=== PATIENT | female | born 1990 | race Caucasian/White ===

== ENCOUNTER → 2016-04-20 | Day surgery (SDC) | payer BC ==
[2016-04-06 13:23] VITALS: Ht 165.1 cm; Wt 100.0 kg
[2016-04-07 15:17] LABS: BASO % 0.2 %; BASO ABS # 0.02 K/uL (0-0.2); COMPLETE YES; EOS % 3.6 %; HEMATOCRIT 39.2 % (37-47); IG% 0.2 %; LYMPH ABS # 2.86 K/uL (1.2-3.4); MEAN CELL VOLUME 86.2 fL (80-100); MEAN CORPUSCULAR HEMOGLOBIN 28.6 pg (25-34); MEAN CORPUSCULAR HGB CONC 33.2 g/dl (32-36); MEAN PLATELET VOLUME 9.5 fL (7.4-10.4); PLATELET COUNT 346 K/uL (130-400); RED BLOOD COUNT 4.55 M/uL (4.2-5.4); WHITE BLOOD COUNT 8.41 K/uL (4.8-10.8)
--- NOTE | 2016-04-07 15:40 | HISTORY & PHYSICAL EXAMINATION ---
DATE OF ADMISSION: 04/20/2016 ADMITTING DIAGNOSES: 1. Abnormal uterine bleeding. 2. 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 The patient has been bothered by irregular vaginal bleeding for the last several months. She has been bleeding 2-3 weeks out of the month. She was seen in the office and had a pelvic ultrasound in office, SIS which revealed what appears to be uterine synechiae. The patient has no history of instrumentation of the uterus. Treatment options were discussed and the patient is admitted for the above listed procedure. PAST MEDICAL HISTORY: OBSTETRICS: x1. GYNECOLOGIC: As above. 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 SURGICAL: None. ALLERGIES: No known drug allergies. SOCIAL HISTORY: No smoking. FAMILY HISTORY: Noncontributory. REVIEW OF SYSTEMS: As per HPI. ADMISSION PHYSICAL EXAMINATION: GENERAL: Shows a pleasant female in no acute distress. VITAL SIGNS: Blood pressure 122/74, height of 5 feet 5 inches and weight of 223 pounds. HEENT EXAMINATION: Unremarkable. NECK: Supple. LUNGS: Clear. HEART: With a regular rhythm and rate. ABDOMEN: Obese, nontender with no palpable masses. PELVIC: Shows normal external genitalia. Vaginal vault is pink and rugated. There is blood in the posterior fornix. The cervix is multiparous and closed. Bimanual examination, uterus and adnexa cannot be palpated secondary to patient habitus. RECTAL: Confirmatory. EXTREMITIES: Exam shows no deep calf tenderness. NEUROLOGIC: Grossly intact. 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 PLAN: The risks, benefits and alternatives to the surgery have been discussed. While the benefits will be removal of the uterine synechiae, the risks are bleeding, infection, inadvertent perforation of the uterus and failure to improve bleeding. The patient understands this. Permit has been signed and she wishes to proceed.
[~2016-04-20] VITALS: Ht 165.1 cm; Wt 100.0 kg
[~2016-04-20] MED LIST: ATROPINE SULFATE 0.1 MG/ML 5ML SYR IV PRN; DEXAMETHASONE SOD INJ 4 MG/ML VIAL ONE; EpHEDrine SULFATE INJ 50 MG/ML AMP IV PRN; FENTANYL CITRATE INJ 50 MCG/1 ML 2 ML VIAL IV PRN; FENTANYL CITRATE INJ 50 MCG/1 ML 2 ML VIAL ONE; IBUPROFEN 600 MG TAB PO PRN; KETOROLAC TROMETHAMINE 30 MG/ML VIAL IV. PRN; KETOROLAC TROMETHAMINE 30 MG/ML VIAL ONE; LACTATED RINGER'S 1000ML 1,000 ML IV SCH; LIDOCAINE HCL 2% 2 ML VIAL (20MG/ML) ONE; MIDAZOLAM HCL 1 MG/ML 2ML VIAL ONE; MTR600X PO; ONDANSETRON INJ 2 MG/ML 2 ML VIAL IV PRN; ONDANSETRON INJ 2 MG/ML 2 ML VIAL ONE; PROPOFOL IV EMULSION 10 MG/ML 20 ML VIAL IV ONE; SODIUM CHLORIDE 0.9% 1000ML 1,000 ML IV SCH; WARF5TAB90 PO; WARF7.5T PO
--- NOTE | 2016-04-20 07:02 | History & Physical Bridge - SC ---
H&P Re-Evaluation Bridge Note: I have examined the patient, reviewed the History & Physical and in the interval since the performance of the History & Physical I have noted the following changes of clinical significance: No changes noted
--- NOTE | 2016-04-20 07:46 | [facility] Post Operative Brief Note ---
Immediate Operative Summary Operative Date Apr 20, 2016. Pre-Operative Diagnosis !) Abnormal Uterine Bleeding Post-Operative Diagnosis same Procedure(s) Performed 1) Diagnostic Hysteroscopy 2) D&C with Myosure Surgeon Dr. Chapin Saab [facility] Director Surgeon(s) None Estimated Blood Loss minimal Findings Denuded endometrium with ? synechia at right lateral horn, broken with hysteroscope. Myosure of lining for residual tissue. Fluid deficit for procedure 350cc Fluids (cc crystalloids) 600 Specimens A. Endometrial Curettings Drains None Anesthesia General Complication(s) None Disposition Recovery Room / PACU
--- NOTE | 2016-04-20 07:51 | Medical Student: [facility] ---
Operative Report Operative Date Apr 20, 2016. Pre-Operative Diagnosis abnormal uterine bleeding Post-Operative Diagnosis abnormal uterine bleeding Procedure(s) Performed diagnostic hysteroscopy and D&C using myosure Surgeon Dr. Cardoso Commercial Loan Assistant Surgeon(s) none Estimated Blood Loss minimal Findings endometrial tissue inconsistent with polyp. possibly fibrous tissue consistent with synechiae. Fluids (cc crystalloids) 800mls Specimens endometrial cuttings Drains bladder drained prior to procedure Anesthesia general Complication(s) None Disposition Recovery Room / PACU Implants none Indications 26 y/o [id number] obese white female c/o abnormal uterine bleeding and suspect uterine synechiae seen on US. History significant for heterozygosity of prothrombin [id number] mutation. She has been unable to become despite 2.5 years of unprotected sexual intercourse.No previous history of D&C or uterine surgery.
--- NOTE | 2016-04-20 07:51 | Discharge Instructions-SurgCtr ---
Discharge Instructions Visit Reason for Visit: Abnormal Uterine Bleeding Discharge Discharge Diagnosis / Problem: same Discharge Goals Goal(s): Therapeutic intervention Activity Recommendations Activity Limitations: as noted below Anesthesia . Post Anesthesia Instructions: If you have had General Anesthesia or IV Sedation: * Do not drive today. * Resume driving when surgeon permits. * Do not make important decisions or sign legal documents today. * Call surgeon for: 1. Temperature elevations greater than 101 degrees F. 2. Uncontrollable pain. 3. Excessive bleeding. 4. Persistent nausea and vomiting. 5. Medication intolerance (nausea, vomiting or rash). * For nausea and vomiting use only clear liquids such as: tea, soda, bouillon until nausea subsides, then gradually increase diet as tolerated. * If you have any concerns or questions, call your surgeon's office. If physician is unavailable and it is an emergency, call 911 or go to the nearest emergency room. . Instructions / Follow-Up Instructions / Follow-Up ACTIVITY RECOMMENDATIONS: * Avoid tampons, douching, hot tubs, pools, and intercourse until bleeding has stopped. * May shower as usual. * No strenuous activity for 24-48 hours. After 24-48 hours, you may do anything you feel like doing (driving and sports are okay). SPECIAL CARE INSTRUCTIONS: Special Diet: * Mild nausea may occur in the immediate post-operative period. * Take clear liquids such as tea, cola or bouillon until all nausea has subsided; you may then resume your normal diet. Special Care: * Light bleeding and vaginal spotting can last from a few days to 3-4 weeks. Call your doctor if bleeding becomes heavier than the heaviest part of your period. * Check your temperature twice a day for one week. If it goes above 100.4 degrees Fahrenheit (38.0 Celsius), notify your doctor. * Call your doctor's office for an appointment for 6 weeks after your surgery. FOLLOW-UP VISIT: Call your doctor's office for an appointment for 6 weeks after your surgery. Diet Recommendations Home Diet: resume previous diet Procedures Procedures Performed: 1) Diagnostic Hysteroscopy 2) D&C with Myosure Pending Studies Studies pending at discharge: yes List of pending studies: Pathology of D&C Medical Emergencies . Who to Call and When: Medical Emergencies: If at any time you feel your situation is an emergency, please call 911 immediately. . Non-Emergent Contact Non-Emergency issues call your: Player Development Executive Call Non-Emergent contact if: you have a fever, temperature is above 100.5, your pain is not controlled . . "Provider Documentation" section prepared by Saad Saab.
[2016-04-20 08:22] VITALS: TEMP 36.2
--- NOTE | 2016-04-20 08:31 | OPERATIVE REPORT ---
DATE OF OPERATION: 04/20/2016 PREOPERATIVE DIAGNOSES: 1. Dysfunctional uterine bleeding. 2. Probable intrauterine synechiae. POSTOPERATIVE DIAGNOSIS: Same. PROCEDURE PERFORMED: 1. Diagnostic hysteroscopy. 2. D\T\C, using MyoSure. SURGEON: Dr. Saab. ANESTHESIA: General. FINDINGS: Hysteroscopic examination of the endometrial lining showed denuded endometrium with questionable synechial band of tissue broken with the hysteroscope. Fragments of the endometrial lining removed with the MyoSure. Fluid deficit for the procedure 345 mL. PROCEDURE IN DETAIL: The patient was taken to the operating room and after general anesthesia was placed in dorsolithotomy position and draped and prepped in the usual fashion bladder was drained of any residual urine. Single tooth tenaculum was used to grasp the anterior lip of the cervix. The cervical os was dilated with Capps dilators to #23. The MyoSure hysteroscope was inserted into the endometrial cavity with the description as above. The MyoSure resectoscope was then inserted through the MyoSure scope and the fragments of tissue on the endometrial lining were removed and sent for pathological evaluation. Post-procedure showed a denuded endometrium. Fluid deficit for the procedure 350 mL. The patient taken out of dorsal lithotomy to recovery room in satisfactory condition. I attest to the content of the Intraoperative Record and any orders documented therein. Any exceptio ns are noted below.
--- NOTE | 2016-04-20 08:43 | Anesthesia Progress Nt - [facility] ---
Anesthesia Post Op Note Date & Time Apr 20, 2016 at 08:43 Vital Signs Pain Intensity: 0 Vital Signs Past 12 Hours Date Time Temp Pulse Resp B/P Pulse Ox O2 Delivery O2 Flow Rate FiO2 04/20/16 08:22 36.2 54 14 135/84 96 Room Air 04/20/16 08:15 55 14 93 04/20/16 08:15 36.4 57 14 04/20/16 08:13 114/79 04/20/16 08:10 65 16 94 04/20/16 08:10 62 16 04/20/16 08:08 119/75 04/20/16 08:05 53 14 04/20/16 08:05 48 14 99 04/20/16 08:03 123/72 04/20/16 08:00 61 11 99 04/20/16 08:00 62 11 04/20/16 07:58 124/80 04/20/16 07:55 69 15 98 04/20/16 07:55 66 15 04/20/16 07:53 121/74 04/20/16 07:51 36.6 58 16 131/78 98 Mask 6 04/20/16 07:50 59 99 04/20/16 07:50 59 04/20/16 06:21 36.9 81 18 127/85 96 Room Air Notes Mental Status: alert / awake / arousable, participated in evaluation Pt Amnestic to Procedure: Yes Nausea / Vomiting: adequately controlled Pain: adequately controlled Airway Patency, RR, SpO2: stable & adequate BP & HR: stable & adequate Hydration State: stable & adequate Anesthetic Complications: no major complications apparent
[2016-04-20 08:55] VITALS: BP 133/85; PULSE 59; O2SAT 97
== END | disposition home or self-care (01) ==
LOC: X.SURG 06:06
PROVIDERS: ATTEND Obstetrics & Gynecology
DX: N84.0 Polyp of corpus uteri (principal); N93.9 Abnormal uterine and vaginal bleeding, unspecified

== ENCOUNTER 2016-07-06 10:58 | Emergency (ER) | payer BC, OTHER ==
[~2016-07-06] VITALS: Ht 165.1 cm; Wt 102.9 kg
[~2016-07-06 10:58] MED LIST changes: -ATROPINE SULFATE 0.1 MG/ML 5ML SYR IV PRN; -DEXAMETHASONE SOD INJ 4 MG/ML VIAL ONE; -EpHEDrine SULFATE INJ 50 MG/ML AMP IV PRN; -FENTANYL CITRATE INJ 50 MCG/1 ML 2 ML VIAL IV PRN; -FENTANYL CITRATE INJ 50 MCG/1 ML 2 ML VIAL ONE; -IBUPROFEN 600 MG TAB PO PRN; -KETOROLAC TROMETHAMINE 30 MG/ML VIAL IV. PRN; -KETOROLAC TROMETHAMINE 30 MG/ML VIAL ONE; -LACTATED RINGER'S 1000ML 1,000 ML IV SCH; -LIDOCAINE HCL 2% 2 ML VIAL (20MG/ML) ONE; -MIDAZOLAM HCL 1 MG/ML 2ML VIAL ONE; -ONDANSETRON INJ 2 MG/ML 2 ML VIAL IV PRN; -ONDANSETRON INJ 2 MG/ML 2 ML VIAL ONE; -PROPOFOL IV EMULSION 10 MG/ML 20 ML VIAL IV ONE; -SODIUM CHLORIDE 0.9% 1000ML 1,000 ML IV SCH; -WARF5TAB90 PO; -WARF7.5T PO
[2016-07-06 11:10] VITALS: TEMP 36.9; Ht 165.1 cm; Wt 102.9 kg
[2016-07-06] MEDS ORDERED: WARF5TAB90 PO (11:48)
[2016-07-06] MEDS ORDERED: WARF7.5T PO (11:48)
[2016-07-06 11:58] VITALS: O2SAT 100
--- NOTE | 2016-07-06 12:07 | EMERGENCY ROOM VISIT NOTE ---
History Report prepared by Meghan: Jaclyn Sams Under the Supervision of: Dr. Saad Fay M.D. First contact with patient: 11:49 Chief Complaint: SHORTNESS OF BREATH Stated Complaint: CHEST PAIN, SOB, (BLOOD CLOTS IN LUNGS 05/14/16) History of Present Illness The patient is a 26 year old female who presents to the Emergency Room with complaints of persistent shortness of breath that began five days ago. The patient stats that in the beginning of April she had a D&C done. She states that at that time she asked her physician if she should be placed on a blood thinner after her surgery because she has a history of Factor 2 and Factor 8. The patient states that her physician said she did not need to be on a blood thinner because the disorder was so minor. She states that at the beginning of May she began becoming extremely short of breath and having heart palpitations. The patient states that she was evaluated at [facility] and was found to have pulmonary emboli. She states that the original plan was to send the patient home on rel, but after consulting the patient' s PCP she states that she was evaluated in [facility] from May 14 to May 20. The patient states that she was started on Lovenox and Coumadin. She reports medication compliance. The patient states that her symptoms had subsided, but states that over the last five days she has noticed increased shortness of breath. She states that she has noticed shortness of breath with walking up the stairs and doing her hair. The patient does note that her symptoms are not nearly as bad as when she had her blood clots. She additionally associates a sharp pain under her left breast that is increased with deep breathing. The patient additionally notes a persistent cough. The patient denies any control use and states that she is a nonsmoker. Source of History: patient Onset: five days ago Position: other (global) Quality: other (shortness of breath) Timing: other (persistent) Associated Symptoms: + cough Note: Associated Symptoms: pain under left breast bone. Review of Systems All systems have been listed, reviewed, and are negative other than those previously mentioned. Please see Additional Medical History Sheet. Past Medical & Surgical Medical Problems: (1) Abnormal uterine bleeding (2) Blood clotting disorder (3) Colitis (4) Heterozygous for prothrombin [id number] mutation (5) Intrauterine synechiae (6) Pulmonary embolism Surgical Problems: (1) Diarrhea (2) S/P D&C (status post dilation and curettage) Family History Diabetes mellitus FHx: Crohn's disease Hypertension Social History Smoking Status: Never Smoker Alcohol Use: none Marital Status: Housing Status: lives with significant other Occupation Status: employed Current/Historical Medications Scheduled Warfarin Sodium (Coumadin), 1 TAB PO mon & fri Warfarin Sodium (Coumadin), 1 TAB PO everyday except m&f Scheduled PRN Ibuprofen (Ibuprofen), 600 MG PO Q6H PRN for Pain Allergies Coded Allergies: Sulfamethoxazole w/Trimethoprim (Verified Allergy, Intermediate, rash, ) Physical Exam Vital Signs Date Time Temp Pulse Resp B/P Pulse Ox O2 Delivery O2 Flow Rate FiO2 07/06/16 14:53 82 18 120/70 98 Room Air 07/06/16 14:00 109/85 07/06/16 13:58 90 16 98 07/06/16 12:31 107/68 07/06/16 12:28 76 18 95 07/06/16 12:26 100 Room Air 07/06/16 12:14 88 07/06/16 12:00 131/70 07/06/16 11:58 94 17 100 07/06/16 11:58 100 Room Air 07/06/16 11:53 130/82 07/06/16 11:10 36.9 93 20 138/84 99 Room Air Physical Exam GENERAL: Patient awake, alert, oriented x 3. Patient follows commands. Patient does not appear toxic. Patient is adequately hydrated and well- nourished. SKIN: No erythema, pallor, cyanosis or rash HEENT: Normal head, pupils equal, reactive to light and accommodation. Ears normal. Oral cavity and posterior pharynx appear normal. Neck: Without adenopathy, no neck vein distention. LUNGS: Clear to auscultation. No wheezes, no rales, no rhonchi. HEART: No murmurs. No gallops. No rubs ABDOMEN: Obese. No masses, no rebound, no hepatomegaly or splenomegaly. EXTREMITIES: No signs of trauma. No pedal or pretibial edema. No calf or thigh tenderness. NEUROLOGIC: Cranial nerves II-XII within normal limits. No gross motor sensory function deficits. Medical Decision & Procedures ER Provider Diagnostic Interpretation: Radiology results as stated below per my review and radiologist interpretation: CHEST 2 VIEWS ROUTINE CLINICAL HISTORY: Shortness of breath. Chest pain. COMPARISON STUDY: Chest radiograph September 11, 2014. FINDINGS: Lung volumes are at the lower limits of normal. There is no consolidation to suggest pneumonia. Pulmonary vascularity is normal. Cardiac size is at the upper limits of normal. IMPRESSION: No acute cardiopulmonary findings. Electronically signed by: Andrea Gomes M.D. 07/06/2016 12:54 PM Dictated Date/Time: 07/06/2016 12:53 PM CHEST CTA for PULMONARY ARTERIES CT DOSE: 573.82 mGy.cm HISTORY: Short of breath. Left-sided chest pain. TECHNIQUE: Multiaxial CT images of the chest were performed following the intravenous administration of contrast to evaluate the pulmonary arteries. Maximal intensity projection images were also obtained. COMPARISON STUDY: Chest CTA 05/18/2011. FINDINGS: Suboptimal evaluation of the left lung segmental and subsegmental pulmonary arteries due to motion artifact. Otherwise, the remaining pulmonary arteries show no filling defects to suggest pulmonary embolus. No pleural or pericardial effusions. Normal caliber thoracic aorta. A 7 mm hypodense lesion within the left hepatic lobe. This is too small to characterize. The visualized spleen and adrenal glands are unremarkable. No mediastinal or hilar lymphadenopathy. No fractures within the visualized osseous structures. No pneumothorax. A 6 mm nodular density at the left lung base on image 23 likely represents mild dependent change given the location and patient's age. Stable benign 4 mm subpleural nodule within the right lung apex on image 82. No focal lung consolidations to suggest pneumonia. IMPRESSION: No evidence for pulmonary embolus with limitations as described above. Electronically signed by: Shahab Paris M.D. 07/06/2016 1:54 PM Dictated Date/Time: 07/06/2016 1:46 PM Laboratory Results 07/06/16 11:52 07/06/16 11:52 Test 07/06/16 11:52 07/06/16 12:11 07/06/16 12:24 Red Blood Count 4.61 M/uL (4.2-5.4) Mean Corpuscular Volume 85.5 fL (80-100) Mean Corpuscular Hemoglobin 28.0 pg (25-34) Mean Corpuscular Hemoglobin Concent 32.7 g/dl (32-36) RDW Standard Deviation 41.1 fL (36.4-46.3) RDW Coefficient of Variation 13.2 % (11.5-14.5) Mean Platelet Volume 9.0 fL (7.4-10.4) Prothrombin Time 24.5 SECONDS (9.0-12.0) Prothromb Time International Ratio 2.2 (0.9-1.1) Activated Partial Thromboplast Time 33.9 SECONDS (21.0-31.0) Partial Thromboplastin Ratio 1.3 Anion Gap 7.0 mmol/L (3-11) Est Creatinine Clear Calc Drug Dose 166.3 ml/min Estimated GFR () 145.0 Estimated GFR (Non- 125.1 BUN/Creatinine Ratio 19.9 (10-20) Calcium Level 8.8 mg/dl (8.5-10.1) Troponin I < 0.015 ng/ml (0-0.045) Bedside D-Dimer > 450 ng/mlFEU (0-450) Urine Color YELLOW Urine Appearance CLEAR (CLEAR) Urine pH 6.0 (4.5-7.5) Urine Specific [place] 1.009 (1.000-1.030) Urine Protein NEG (NEG) Urine Glucose (UA) NEG (NEG) Urine Ketones NEG (NEG) Urine Occult Blood NEG (NEG) Urine Nitrite NEG (NEG) Urine Bilirubin NEG (NEG) Urine Urobilinogen NEG (NEG) Urine Leukocyte Esterase NEG (NEG) Urine Test NEG (NEG) Laboratory results as stated above per my review. ECG Indication: SOB/dyspnea Rate (beats per minute): 87 Rhythm: normal sinus Findings: no acute ischemic change, no ectopy ED Course 1152: Past medical records reviewed. The patient was evaluated in room C1B. A complete history and physical examination was performed. 1300: I reevaluated the patient and I updated her that she will have a CT scan. She is in agreement. 1436: I reevaluated the patient and she is resting comfortably. I discussed all the exam findings with her and I discussed the treatment plan. She verbalized complete understanding and agreement. She is ready to go home. 1441: Ordered Albuterol 2 puffs INH. Medical Decision Nurses notes reviewed. Medical history sheet reviewed. Differential diagnosis includes but is not limited to: acute bronchitis, pneumonia, PE, pneumothorax, acute cardiac condition. Multiple labs, EKG and imaging were obtained. Please see above. The patient has no evidence of an acute PE. INR is 2.2. The patient may have some bronchitis causing her symptoms. She was given a Ventolin inhaler which she will continue to use at home. Impression Primary Impression: Acute bronchitis Scribe Attestation The scribe's documentation has been prepared under my direction and personally reviewed by me in its entirety. I confirm that the note above accurately reflects all work, treatment, procedures, and medical decision making performed by me. Departure Information Dispostion Home / Self-Care Referrals Ld Fregoso M.D. (PCP) Forms HOME CARE DOCUMENTATION FORM, IMPORTANT VISIT INFORMATION Patient Instructions [facility] Additional Instructions Continue all of your current medications as prescribed. 2 puffs of Ventolin inhaler every 4-6 hours as needed for cough or shortness of breath. Follow-up with your family physician within the next 2 weeks. Return here sooner if you become more short of breath. Work Instructions Return To Work: 1 day Specific Date: 07/07/16
[2016-07-06 12:20] LABS: HEMATOCRIT 39.4 % (37-47); MEAN CELL VOLUME 85.5 fL (80-100); MEAN CORPUSCULAR HGB CONC 32.7 g/dl (32-36); PLATELET COUNT 305 K/uL (130-400); RED BLOOD COUNT 4.61 M/uL (4.2-5.4); WHITE BLOOD COUNT 8.24 K/uL (4.8-10.8)
[2016-07-06 12:29] LABS: BLOOD UREA NITROGEN 12 mg/dl (7-18); BUN/CREATININE RATIO 19.9 (10-20); CALCIUM 8.8 mg/dl (8.5-10.1); CARBON DIOXIDE 25 mmol/L (21-32); CHLORIDE 108 mmol/L (98-107); CREATININE 0.61 mg/dl (0.60-1.20); GLUCOSE 91 mg/dl (70-99); POTASSIUM 4.1 mmol/L (3.5-5.1); SODIUM 140 mmol/L (136-145)
[2016-07-06 12:46] LABS: URINE APPEARANCE CLEAR (CLEAR); URINE BILIRUBIN NEG (NEG); URINE COLOR YELLOW; URINE NITRITE NEG (NEG); URINE SPECIFIC GRAVITY 1.009 (1.000-1.030); UROBILINOGEN NEG (NEG); ZZUR CULT IF INDIC CLEAN CATCH NO
[2016-07-06 12:54] LABS: MANUAL MICROSCOPIC REQUIRED? NO; REVIEW REQ? NO
--- NOTE | 2016-07-06 12:56 | DIAGNOSTIC IMAGING REPORT ---
CHEST 2 VIEWS ROUTINE CLINICAL HISTORY: Shortness of breath. Chest pain. COMPARISON STUDY: Chest radiograph September 11, 2014. FINDINGS: Lung volumes are at the lower limits of normal. There is no consolidation to suggest pneumonia. Pulmonary vascularity is normal. Cardiac size is at the upper limits of normal. IMPRESSION: No acute cardiopulmonary findings. Electronically signed by: Andrea Gomes M.D. 07/06/2016 12:54 PM Dictated Date/Time: 07/06/2016 12:53 PM
[2016-07-06] MEDS ORDERED: OPTIRAY 320 IV PRN (13:30)
[2016-07-06 13:38] LABS: INR 2.2 (0.9-1.1); PARTIAL THROMBOPLASTIN RATIO 1.3; PROTHROMBIN TIME (PATIENT) 24.5 SECONDS (9.0-12.0)
--- NOTE | 2016-07-06 13:56 | DIAGNOSTIC IMAGING REPORT ---
CHEST CTA for PULMONARY ARTERIES CT DOSE: 573.82 mGy.cm HISTORY: Short of breath. Left-sided chest pain. TECHNIQUE: Multiaxial CT images of the chest were performed following the intravenous administration of contrast to evaluate the pulmonary arteries. Maximal intensity projection images were also obtained. COMPARISON STUDY: Chest CTA 05/18/2011. FINDINGS: Suboptimal evaluation of the left lung segmental and subsegmental pulmonary arteries due to motion artifact. Otherwise, the remaining pulmonary arteries show no filling defects to suggest pulmonary embolus. No pleural or pericardial effusions. Normal caliber thoracic aorta. A 7 mm hypodense lesion within the left hepatic lobe. This is too small to characterize. The visualized spleen and adrenal glands are unremarkable. No mediastinal or hilar lymphadenopathy. No fractures within the visualized osseous structures. No pneumothorax. A 6 mm nodular density at the left lung base on image 23 likely represents mild dependent change given the location and patient's age. Stable benign 4 mm subpleural nodule within the right lung apex on image 82. No focal lung consolidations to suggest pneumonia. IMPRESSION: No evidence for pulmonary embolus with limitations as described above. Electronically signed by: Shahab Paris M.D. 07/06/2016 1:54 PM Dictated Date/Time: 07/06/2016 1:46 PM
[2016-07-06] MEDS ORDERED: ALBUTEROL HFA 8 GM INHALER INH STA (14:41)
[2016-07-06 15:09] VITALS: BP 120/70; PULSE 68; O2SAT 99
== END 2016-07-06 15:10 | disposition home or self-care (01) ==
LOC: C.EDB 10:59 → C.EDC 15:10
DX: J20.9 Acute bronchitis, unspecified (principal); Z86.711 Personal history of pulmonary embolism; Z98.890 Other specified postprocedural states; D68.52 Prothrombin gene mutation; D68.2 Hereditary deficiency of other clotting factors; D66 Hereditary factor VIII deficiency; Z83.3 Family history of diabetes mellitus; Z82.49 Family history of ischemic heart disease and other diseases of the circulatory system; Z83.79 Family history of other diseases of the digestive system; Z79.01 Long term (current) use of anticoagulants

== ENCOUNTER → 2017-09-29 | Outpatient (CLI) | payer BC ==
[~2017-09-29] MED LIST changes: +WARF5TAB90 PO; +WARF7.5T PO
[2017-09-29 13:01] LABS: INR 1.4 (0.9-1.1)
== END | disposition home or self-care (01) ==
LOC: C.LABMFLN 07:13
PROVIDERS: ATTEND Family Medicine
DX: I26.99 Other pulmonary embolism without acute cor pulmonale (principal)